=== PATIENT | male | born 1985 | race African-American/Black ===

== ENCOUNTER 2016-09-02 01:29 | Emergency (ER) | payer OTHER ==
[~2016-09-02 01:29] MED LIST: CIPROFLOXACIN H10 ML RIGHT EYE; CLEOCIN300 MG PO; DEXTROAMP-AMPHE30 MG PO; ENDOCET 5-3251 EACH PO; FLEXERIL10 MG PO; INDERAL10 MG PO; MOBIC7.5 MG PO; NOHOMEMEDS; PERCOCET 5/31 TABLET PO; PREDNISONE20 MG PO; TRAMADOL HCL50 MG PO; ULTRAM50 MG PO; VALIUM5 MG PO; VENTOLIN HFA18 GM IH
[2016-09-02 01:48] LABS: BASOPHIL COUNT 0.1 K/uL (0-0.1); EOSINOPHIL (%) 2.7 % (0-5); EOSINOPHIL COUNT 0.4 K/uL (0-0.3); HEMATOCRIT 44.7 % (38.0-50.0); IMMATURE GRANULOCYTE (%) 0.4 % (0.0-0.7); IMMATURE GRANULOCYTE COUNT 0.1 K/uL; INSTRUMENT ABS NEUTROPHIL CT 8.3 K/uL; LYMPHOCYTE COUNT 4.6 K/uL (1.0-2.8); MCH 33.5 PG (29.0-34.0); MCHC 35.6 G/DL (30.0-36.0); MCV 94.1 FL (86-99); MEAN PLAT.VOLUME 9.6 uM^3 (9.0-12.4); MONOCYTE (%) 6.3 % (3-12); MONOCYTE COUNT 0.9 K/uL (0-0.8); NEUTROPHIL (%) 58.1 % (45-76); NEUTROPHIL COUNT 8.3 K/uL (1.8-6.4); PLATELET COUNT 273 K/uL (156-360); RBC DIS.WIDTH-CV 11.6 % (11.8-14.6); RBC DIS.WIDTH-SD 40.2 % (39-53); RED BLOOD COUNT 4.75 M/uL (4.00-5.50); WHITE BLOOD COUNT 14.2 K/uL (4.1-10.2)
[2016-09-02 01:56] LABS: AMYLASE 77 IU/L (1-118); CHLORIDE 105 mEq/L (99-109); POTASSIUM 3.2 mEq/L (3.7-5.4); SODIUM 142 mEq/L (136-147)
[2016-09-02 01:58] LABS: GLUCOSE 115 mg/dL (70-99)
[2016-09-02 01:59] LABS: ANION GAP 17 MEQ/L (2-14)
[2016-09-02 02:01] LABS: ADD MIUA? YES; BILIRUBIN NEGATIVE; BLOOD SMALL; COLOR YELLOW ((YELLOW)); GLUCOSE (STRIP) 50; KETONES 5; LEUKOCYTES NEGATIVE; NITRITE NEGATIVE; PROTEIN (STRIP) 30; SPECIFIC GRAVITY 1.014 (1.000-1.030); UROBILINOGEN 0.2 MG/DL (0.2-1.0)
[2016-09-02 02:01] LABS: SERUM ETHYL ALCOHOL 172 mg/dL
[2016-09-02 02:02] LABS: GFR ESTIMATE (CALCULATED) > 59 mL/min/
[2016-09-02 02:03] LABS: UREA NITROGEN (BUN) 13 mg/dL (9-23)
[2016-09-02 02:05] LABS: LIPASE 27 U/L (1.0-51.0)
[2016-09-02 02:09] LABS: AMPHETAMINE PRESUMPTIVE POSITIVE (500 ng/mL); BARBITURATES NEGATIVE (200 ng/mL); BENZODIAZEPINES NEGATIVE (150 ng/mL); COCAINE NEGATIVE (150 ng/mL); INTERNAL CONTROLS VALID? YES; METHADONE NEGATIVE (200 ng/mL); METHAMPHETAMINE NEGATIVE (500 ng/mL); OPIATES (MORPHINE) NEGATIVE (100 ng/mL); OXYCODONE NEGATIVE (100 ng/mL); PHENCYCLIDINE NEGATIVE (25 ng/mL); PROPOXYPHENE NEGATIVE (300 ng/mL); THC CANNABINOIDS PRESUMPTIVE POSITIVE (50 ng/mL); TRICYCLIC ANTIDEPRESSANTS NEGATIVE (300 ng/mL)
[2016-09-02 02:10] LABS: ADD MEDTOX COMMENT Y
[2016-09-02 02:29] LABS: BACTERIA RARE /HPF; EPITHELIAL CELLS NONE SEEN /HPF; MUCUS TRACE /LPF; UCUL ADDED? NO; WHITE BLOOD CELLS 0-5 /HPF (0-5)
[2016-09-02 03:47] LABS: BASE EXCESS -5.2 mEq/L (-3 to +3); CARBOXY HGB 2.8 % (0-5); DEVICE VENT; FI02 100 %; MECHANICAL RATE 16 resp/min; METHEMOGLOBIN 1.2 % (0-1.5); MODE AC; PCO2 48 mm Hg (35-45); PEEP 5 CM/H20; PO2 114 mm Hg (80-100); SITE LR; TIDAL VOLUME 400 ML; TOTAL RESP RATE 28 resp/min; pH 7.27 (7.35-7.45)
== END 2016-09-02 06:28 | disposition short-term general hospital (02) ==
LOC: TRA 01:29
PROVIDERS: Emergency Medicine
PROC: 0BH17EZ Insertion of Endotracheal Airway into Trachea, Via Natural or Artificial Opening (ICD-10-PCS; principal; 2016-09-02)
DX: S02.31XA Fracture of orbital floor, right side, initial encounter for closed fracture (principal); S02.40CA Maxillary fracture, right side, initial encounter for closed fracture; S02.2XXA Fracture of nasal bones, initial encounter for closed fracture; S06.9X0A Unspecified intracranial injury without loss of consciousness, initial encounter; J96.00 Acute respiratory failure, unspecified whether with hypoxia or hypercapnia; F10.129 Alcohol abuse with intoxication, unspecified; D72.829 Elevated white blood cell count, unspecified; Y90.6 Blood alcohol level of 120-199 mg/100 ml; Y09 Assault by unspecified means; Z78.1 Physical restraint status
CPT/HCPCS: 36600; 70450; 70486; 71010; 71260; 72125; 72129; 72132; 74177; 80048; 81003; 82150; 82803; 83690; 84999; 85025; 86900; 86901; 93005; 94002; 99281; 99285; G0480; J0690; J2250; J2543; J2704